=== PATIENT | female | born 1965 ===

== ENCOUNTER 2018-07-17 09:53 | Outpatient (CLI) | payer OTHER ==
[~2018-07-17] VITALS: Ht 160 cm; Wt 68.0 kg
== END 2018-07-17 10:10 | disposition home or self-care (01) ==
LOC: OFIC 805 09:53
DX: E04.1 Nontoxic single thyroid nodule (principal); E83.52 Hypercalcemia; R49.0 Dysphonia; K21.9 Gastro-esophageal reflux disease without esophagitis

== ENCOUNTER 2018-08-16 11:02 | Outpatient (CLI) | payer OTHER | END 2018-08-16 11:05 | disposition home or self-care (01) | LOC: SONOGRAMA 11:02 | DX: E04.1 Nontoxic single thyroid nodule (principal); E03.8 Other specified hypothyroidism ==